=== PATIENT | male | born 1960 | race Caucasian/White ===

== ENCOUNTER 2016-11-22 13:41 | Emergency (ER) | payer BC ==
--- NOTE | 2016-11-22 14:24 | ER NURSING DOCUMENTATION ---
Nurse's Notes [facility] Name:Ger Forbes Age:55 yrs Sex:Male :1960 Arrival Date:11/22/2016 Time:13:41 Bed2 Private MD: Diagnosis:Corneal Abrasion Presentation: 11/22 13:45 Acuity: JENNIFER 4 lc 13:55 Presenting complaint: Patient states: CAMPING LAST FEW DAYS AND C/O IRRITATION TO RIGHT lc EYE, NO TRAUMA. Transition of care: patient was not received from another setting of care. Notified ED Physician of patient's arrival and CC. 13:55 Method Of Arrival: Private Vehicle Triage Assessment: 13:57 General: Appears in no apparent distress, comfortable, Behavior is appropriate for age, lc cooperative. Pain: Complains of pain in right eye Pain At worst was 1 out of 10 on a pain scale. Quality of pain is described as dull, Pain began 2-3 days ago. EENT: Eyes are tearing on outer aspect of conjuctiva of right eye and inner aspect of conjuctiva of right eye. Neuro: Level of Consciousness is awake, alert, Oriented to person, place, time, event, Reports blurred vision in right eye. Respiratory: Respiratory: No deficits noted. GI: No deficits noted. Historical: - Allergies: No known drug Allergies; - Home Meds: 1. None - PMHx: None; - PSHx: None; - Tetanus: < 10 years. - Immunization history: Pneumococcal vaccine status is unknown, Flu Vaccine >1 year. - Ebola Screening: : Patient denies exposure to infectious person. Patient denies travel to an Ebola-affected area in the 21 days before illness onset. No symptoms or risks identified at this time. . - Social history: Smoking status: Patient states was never smoker of tobacco. Screenin:00 Infectious Disease Risk None. Abuse screen: Denies threats or abuse. Denies injuries lc from another. Nutritional screening: No deficits noted. Assessment: 14:00 See Triage Assessment done by same RN. Vital Signs: 13:50 BP 151 / 90; Pulse 92; Resp 16; Temp 98.2(O); Pulse Ox 95% on R/A; Weight 72.57 kg (R); arc Height 6 ft. 0 in. (182.88 cm) (R); Pain 1/10; 14:22 Pain 0/10; lc 13:50 Body Mass Index 21.70 (72.57 kg, 182.88 cm) arc Visual Acuity: 14:00 Left Eye Visual acuity 20/40, ; Right Eye Visual acuity 20/60, ; Both Eyes Visual lc acuity 20/40; With Lenses; ED Course: 13:43 Patient arrived in ED. ama 13:45 Marry Mckeon, RN is Primary Nurse. 13:45 Triage completed. lc 13:56 Danyel Bazzi MD is Attending Physician. tl1 14:00 Valuables Remains with patient Patient has correct armband on for positive lc identification. Bed in low position. Call light in reach. Adult w/ patient. 14:00 Assist Provider Assist provider with eye exam of right eye. using fluorescein stain, lc Performed by aDnyel Bazzi MD Patient tolerated well. Administered Medications: No medications were administered Outcome: 14:16 Discharge ordered by . tl1 14:22 Discharged to home ambulatory, with family. 14:22 Condition: good 14:22 Discharge Assessment: Patient awake, alert and oriented x 3. No cognitive and/or functional deficits noted. Patient verbalized understanding of disposition instructions. 14:22 Discharge instructions given to patient, Instructed on discharge instructions, follow up and referral plans. medication usage, Demonstrated understanding of instructions, medications, Prescriptions given X 3. 14:23 Patient left the ED. sc1 Signatures: Marry Mckeon, Sue Doll RN, RN RN sc1 Hector Lock, Reg Reg Danyel Rodarte MD MD tl1 Mary Farr, Reg Reg arc
--- NOTE | 2016-11-22 14:24 | ER PHYSICIAN DOCUMENTATION ---
Physician Documentation [facility] Name:Ger Forbes Age:55 yrs Sex:Male :1960 Arrival Date:11/22/2016 Time:13:41 Bed2 Private MD: Danyel Walden Disposition: 11/22 15:00 Chart complete. tl1 Disposition: 11/22/16 14:16 Discharged to Home/Self Care. Impression: Corneal Abrasion. - Condition is Good. - Discharge Instructions: CORNEAL ABRASION. - Prescriptions for Cyclogyl 1 % Ophthalmic drops - instill 1 drop by OPHTHALMIC route 3 times per day; 1 bottle. Acular 0.5 % Ophthalmic Drops - instill 1 drop by OPHTHALMIC route every 6 hours into affected eye(s); 5 milliliter. gatifloxacin 0.3 % Ophthalmic drops - instill 1 drop by OPHTHALMIC route every 2 hours up to 8 times daily for 2 days, then decrease frequency to up to 4 times per day while awake for 5 days; 1 bottle. - Medical Reconciliation form form. - Follow up: Private Physician; When: 1 - 2 days; Reason: Recheck today's complaints, Continuance of care. - Problem is new. - Symptoms are unchanged. HPI: 13:56 This 55 yrs old Male presents to ER via Private Vehicle with complaints of tl1 Eye Problem - RIGHT. 14:00 He thinks he got something in his right eye while backpacking in [facility] 4 days ago. Since tl1 then he has persistent pain, and worsening redness and irritation, with photophobia and mild decrease in his vision.. No complaints with his left eye. he is here backpacking with his son, visiting from near [facility]. He denied any prior h/o cold sores or other herpesvirus infection. Historical: - Allergies: No known drug Allergies; - Home Meds: 1. None - PMHx: None; - PSHx: None; - Tetanus: < 10 years. - Immunization history: Pneumococcal vaccine status is unknown, Flu Vaccine >1 year. - Ebola Screening: : Patient denies exposure to infectious person. Patient denies travel to an Ebola-affected area in the 21 days before illness onset. No symptoms or risks identified at this time. . - Social history: Smoking status: Patient states was never smoker of tobacco. ROS: 14:00 Eyes: Positive for blurry vision, foreign body sensation, pain, photophobia, redness, tl1 tearing, vision loss. 14:00 All other systems are negative. Exam: 14:00 Visual Acuity: I have reviewed the nursing documentation. tl1 14:00 Constitutional: The patient appears in no acute distress, alert, awake, non-diaphoretic, non-toxic, well developed, well hydrated, well groomed, well nourished. 14:00 Head/face: Exam is negative for acute changes. 14:00 Eyes: Periorbital structures: appear normal, Pupils: equal, round, and reactive to light and accomodation, Extraocular movements: intact throughout, Conjunctiva: injected, in the right eye, Corneas: abrasion, that is moderate sized, approximately 2 mm(s), on the right, at 5 o'clock, foreign body, is not appreciated, a fluorescein strip employed to appreciate the findings, Sclera: no acute changes, Anterior chamber: no acute changes, a slit lamp exam was employed for the exam. 14:00 ENT: Exam is negative for acute changes. 14:00 Neck: ROM/movement: is normal. 14:00 Cardiovascular: Rate: normal. 14:00 Respiratory: Respirations: normal. 14:00 Neuro: Exam negative for acute changes. Vital Signs: 13:50 BP 151 / 90; Pulse 92; Resp 16; Temp 98.2(O); Pulse Ox 95% on R/A; Weight 72.57 kg (R); arc Height 6 ft. 0 in. (182.88 cm) (R); Pain 1/10; 14:22 Pain 0/10; lc 13:50 Body Mass Index 21.70 (72.57 kg, 182.88 cm) arc Visual Acuity: 14:00 Left Eye Visual acuity 20/40, ; Right Eye Visual acuity 20/60, ; Both Eyes Visual lc acuity 20/40; With Lenses; MDM: 13:30 Differential diagnosis: Corneal abrasion of Corneal ulcer of. Data reviewed: vital tl1 signs, nurses notes, and as a result, I will discharge patient. Counseling: I had a detailed discussion with the patient and/or guardian regarding: the historical points, exam findings, and any diagnostic results supporting the discharge/admit diagnosis, the need for outpatient follow up, an opthalmologist, to return to the emergency department if symptoms worsen or persist or if there are any questions or concerns that arise at home. Response to treatment: There is no appreciated change of the patient's symptoms at this time, and as a result, I will discharge patient, administer antibiotics gatifloxacin eye drops. Special discussion: About the absolute need for ophthalmology f/u on return home and repeat ED visit for any worsening.. 13:56 Patient medically screened. tl1 Dispensed Medications: No medications were administered Signatures: Marry Mckeon RN RN Sue Rivera RN RN sc1 Danyel Bazzi MD MD tl1
== END 2016-11-22 14:24 | disposition home or self-care (01) ==
LOC: ER 13:41
DX: S05.01XA Injury of conjunctiva and corneal abrasion without foreign body, right eye, initial encounter (principal); Y92.828 Other wilderness area as the place of occurrence of the external cause; Y93.01 Activity, walking, marching and hiking
CPT/HCPCS: 99283